=== PATIENT | female | born 1960 | race Caucasian/White ===

== ENCOUNTER 2023-05-09 15:21 | Emergency (ER) | payer BC, SELFPAY ==
--- NOTE | ~2023-05-09 | CT_ITS ---
EXAMINATION:CT diagnostic chest w con DATE: 05/09/2023 17:08 INDICATION: Right lung mass. TECHNIQUE: Computed tomography (CT) of the chest was performed with 75 mL Omnipaque 350 intravenous c ontrast. Automated exposure control and iterative reconstruction technique were employed. The dose-le ngth product (DLP) was 143.29 mGy-cm. COMPARISON: Chest 2 views 05/09/2023 FINDINGS: There is mild emphysema. There is a 3.9 x 3.0 cm mass in right lung upper lobe. There are p atchy groundglass opacities in all lobes. A calcified right lung nodule and calcified right hilar lym ph nodes are consistent with old granulomatous disease. No pleural effusion. The heart size is normal . There are coronary artery calcifications. No pericardial effusion. There is a 13 x 18 mm right ana maría r lymph node. There is severe mid thoracic spondylosis. IMPRESSION: 1. Right lung upper lobe mass suspicious for primary bronchogenic carcinoma. CT-guided biopsy is audrey mmended. 2. Mildly enlarged right hilar lymph node suspicious for metastatic disease. 3. Patchy groundglass opacities in all lobes, which may be atypical pneumonia or less likely mild pul monary edema. 4. Mild emphysema. Reviewed, dictated and finalized at location E. [employer] CODER IMPRESSION: 1. Right lung upper lobe mass suspicious for primary bronchogenic carcinoma. CT -guided biopsy is recommended. 2. Mildly enlarged right hilar lymph node suspicious for metastatic disease. 3. Patchy groundglass opacities in all lobes, which may be atypical pneumonia o r less likely mild pulmonary edema. 4. Mild emphysema.
--- NOTE | ~2023-05-09 | XR_ITS ---
EXAMINATION: XR chest 2V DATE: 05/09/2023 15:40 INDICATION: Shortness of breath TECHNIQUE: PA and lateral views of the chest are obtained. COMPARISON: None available FINDINGS: There is a possible mass of the right lung apex. No pleural effusion or pneumothorax. The c ardiomediastinal silhouette is normal. There is moderate thoracic spondylosis. IMPRESSION: 1. Possible mass of the right lung apex. Further evaluation with CT of the chest is recommended. Reviewed, dictated and finalized at location L. [employer] SERVICES ASSOCIATE IMPRESSION: 1. Possible mass of the right lung apex. Further evaluation with CT of the ches t is recommended.
[2023-05-09 15:24] VITALS: BP 166/105; PULSE 104; RESP 20; TEMP 36.9; O2SAT 94
[2023-05-09 15:27] VITALS: O2SAT 96
--- NOTE | 2023-05-09 15:27 | ECG_ITS ---
Measurements Intervals [place] Rate: 98 P: 73 MN: 147 QRS: 265 QRSD: 132 T: 57 QT: 353 QTc: 451 Interpretive Statements SINUS RHYTHM POSSIBLE RIGHT ATRIAL ENLARGEMENT [0.25mV P WAVE] LEFT ATRIAL ENLARGEMENT [-0.15mV P WAVE IN V1/V2] RIGHT BUNDLE BRANCH BLOCK [120+ ms QRS DURATION, UPRIGHT V1, 40+ ms S IN I/aVL/V4/V5/V6] LEFT POSTERIOR FASCICULAR BLOCK [QRS AXIS > 109, INFERIOR Q] NO PREVIOUS ECG AVAILABLE FOR COMPARISON Electronically Signed On 05-09-2023 15:53:11 EMBOSSING [employer]ESS OPERATOR by Vinicius Lawrence M.D.
[2023-05-09 15:58] VITALS: PULSE 104
[2023-05-09 16:19] LABS: Basophils Percent Auto 0.1 % (0.2-1.2); Hematocrit 45.2 % (37.0-47.0); Hemoglobin 15.4 g/dL (12.0-15.0); Immature Granulocyte Absolute 0.01 K/mm3 (0.00-0.031); Immature Granulocyte Percent A 0.1 % (0-0.5); Lymphocytes Absolute Auto 0.47 K/mm3 (0.9-3.2); Lymphocytes Percent Auto 6.5 % (18.3-44.2); Mean Corpuscular HGB Conc 34.1 g/dl (32-36); Mean Corpuscular Hemoglobin 27.7 pg (26-34); Mean Corpuscular Volume 81.4 fl (80-100); Mean Platelet Volume 10.3 fl (7.4-10.4); Monocytes Absolute Auto 0.7 K/mm3 (0.1-0.6); Monocytes Percent Auto 9.5 % (2.6-8.5); Neutrophils Percent Auto 83.8 % (45.5-73.1); Platelet Count Result 184 k/mm3 (150-375); Red Blood Count 5.55 M/mm3 (4.2-5.4); Red Cell Distribution Width 13.3 % (11.5-14.5); White Blood Count 7.2 K/mm3 (4.5-10.0)
[2023-05-09 16:34] LABS: Partial Thromboplastin Time 38.1 SECONDS (22.3-36.8)
[2023-05-09 16:46] LABS: Alanine Aminotransferase 27 U/L (6-35); Albumin Level 4.3 g/dL (3.5-5.1); Alkaline Phosphatase 84 U/L (38-126); Anion Gap 9 mmol/L (8-16); Aspartate Amino Transferase 44 U/L (14-36); Bilirubin,Total 0.6 mg/dL (0.2-1.3); Blood Urea Nitrogen 16 mg/dL (7-17); Carbon Dioxide 21 mmol/L (22-30); Chloride 99 mmol/L (98-107); Estimated CRCL calculation 58 ml/min; Estimated Glomerular Filt Rate > 60; Glucose 127 mg/dL (65-110); Potassium 3.3 mmol/L (3.4-5.0); Sodium 129 mmol/L (137-145)
[2023-05-09 16:55] LABS: NT Pro B Type Natriuretic Pept 447 pg/mL (19.9-100); Troponin I < 0.012 ng/mL (0.000-0.034)
--- NOTE | 2023-05-09 18:13 | ED.SOB ---
HPI - SOB/Dyspnea General Chief Complaint: Shortness of Breath/Dyspnea Stated Complaint: dyspnea Time Seen by Provider: 05/09/23 15:49 History of Present Illness HPI Narrative: 62-year-old with a history of COPD, anxiety disorder here with complaints of shortness of breath which is been ongoing for quite some time. However for the past few days he would with minimal ambulation she gets short winded. She denies any chest pain. No history of fever or chills. Family reports that she has been coughing up sputum . He also reported that she lost her few days ago and his burial is in few days ,Feels anxious Related Data Home Medications Medication Instructions Recorded Confirmed acetaminophen 325 mg tablet 325 mg PO Q6H PRN 07/06/20 08/03/20 (Tylenol) cholecalciferol (vitamin D3) 125 125 mcg PO DAILY 07/06/20 08/03/20 mcg (5,000 unit) capsule ibuprofen 600 mg tablet 600 mg PO Q6H PRN 07/06/20 08/03/20 Allergies Allergy/AdvReac Type Severity Reaction Status Date / Time No Known Allergies Allergy Verified 10/15/12 19:27 Review of Systems Review of Systems: All systems reviewed & are unremarkable except as noted in HPI and below Constitutional: Constitutional: Reports no additional constitutional complaints Eyes: Eyes: Reports no additional eye complaints ENT: Reports system reviewed and no additional complaints, except as documented Cardiovascular: Cardiovascular: Reports no additional cardiovascular complaints Respiratory: Respiratory: Reports as per HPI Gastrointestinal: Gastrointestinal: Reports no additional gastrointestinal complaints Musculoskeletal: Musculoskeletal: Reports no additional musculoskeletal complaints Integumentary/Breasts: Skin/Breast: Reports system reviewed and no additional complaints, except as docu Neurologic: Reports system reviewed and no additional complaints, except as documented [facility] Past Medical History Medical History Anxiety Arthritis Cough Diverticulitis Diverticulosis Hypertension Tobacco abuse Underweight Vitamin D deficiency Family History Family History Father AA (alcohol abuse) Mother Breast cancer Hypertension Other Family history of arthritis Social History Social History Smoking status: Current every day smoker Alcohol intake: never Substance use: current Exam Narrative: GENERAL: Well-appearing, well-nourished, and in no acute distress. HEAD: Normocephalic, atraumatic. EYES: PERRLA and EOMI. ENT: Nares clear, no rhinorrhea or epistaxis. Mucous membranes moist. NECK: Supple. CHEST: Clear to auscultation. No respiratory distress. HEART: Regular rate and rhythm. No murmur heard. Normal peripheral pulses. ABDOMEN: Soft, nontender, nondistended, normal active bowel sounds. EXTREMITIES: Normal range of motion. No edema. SKIN: Warm, dry, no rash. NEURO: No focal deficits. Alert and oriented x3. PSYCH: Normal mood and affect. Course Course Emergency Course: Notified patient about her lab work, CT findings. She does not want to be admitted because of . Discussed with Dr. Sheppard will arrange for out pt work up.pt feels comfortable going home. 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
[2023-05-09 18:39] VITALS: BP 122/82; PULSE 85; RESP 18; TEMP 36.6; O2SAT 98
== END 2023-05-09 18:42 | disposition home or self-care (01) ==
PROVIDERS: Emergency Provider Family Medicine; PCP Family Medicine
DX: R91.8 Other nonspecific abnormal finding of lung field (principal); F41.9 Anxiety disorder, unspecified; J44.9 Chronic obstructive pulmonary disease, unspecified; I10 Essential (primary) hypertension; F17.200 Nicotine dependence, unspecified, uncomplicated
CPT/HCPCS: 36415; 71046; 71260; 80053; 83880; 84484; 85025; 85610; 85730; 93005; 99284; Q9967